=== PATIENT | male | born 1965 | race Hispanic/Latino ===

== ENCOUNTER 2019-11-24 10:59 | Observation (INO) | payer SELFPAY ==
[~2019-11-24] VITALS: Ht 165.1 cm; Wt 83.9 kg
[2019-11-24] MEDS ORDERED: SODIUM CHLORIDE 0.9% 1000ML 1,000 ML IV STA (11:37)
[2019-11-24 12:45] LABS: EOSINOPHILS # (AUTO) 0.1 (0.0-0.4); EOSINOPHILS % 2.2 % (0.0-6.0); HEMATOCRIT 42.2 % (38.2-49.6); HEMOGLOBIN 13.9 g/dL (14.0-18.0); LYMPHOCYTES # (AUTO) 0.8 (1.0-3.2); LYMPHOCYTES % 19.4 % (18.0-39.1); MEAN CORPUSCULAR HEMOGLOBIN 28.1 pg (28-32); MEAN CORPUSCULAR HGB CONC 32.9 g/dL (31-35); MEAN CORPUSCULAR VOLUME 85.4 fL (81-99); MONOCYTES # (AUTO) 0.3 (0.2-0.8); MONOCYTES % 6.9 % (4.4-11.3); NEUTROPHILS # (AUTO) 2.9 (2.1-6.9); NEUTROPHILS % 70.3 % (38.7-80.0); PLATELET COUNT 165 x10e3/uL (140-360); RED BLOOD COUNT 4.94 x10e6/uL (4.3-5.7); RED CELL DISTRIBUTION WIDTH 12.6 % (11.7-14.4)
[2019-11-24 12:55] LABS: AMPHETAMINES SCREEN,URINE NEGATIVE (NEGATIVE); BENZODIAZEPINES SCREEN,URINE NEGATIVE (NEGATIVE); PHENCYCLIDINE SCREEN,URINE NEGATIVE (NEGATIVE)
[2019-11-24 12:56] LABS: INR 1.97; PROTHROMBIN TIME 23.8 seconds (11.9-14.5)
[2019-11-24 12:58] LABS: PARTIAL THROMBOPLASTIN TIME 106.5 seconds (23.8-35.5)
[2019-11-24 13:03] LABS: ALANINE AMINOTRANSFERASE 64 IU/L (0-55); ALBUMIN/GLOBULIN RATIO 1.3 (0.8-2.0); ALKALINE PHOSPHATASE 110 IU/L (40-150); BLOOD UREA NITROGEN 14 mg/dL (7-26); BUN/CREATININE RATIO 17 (6-25); CALCIUM 9.2 mg/dL (8.4-10.2); CARBON DIOXIDE 26 mmol/L (22-29); CHLORIDE 106 mmol/L (98-107); CREATINE KINASE 196 IU/L (30-200); CREATININE, SERUM 0.83 mg/dL (0.72-1.25); EST GLOMERULAR FILTRATION RATE > 60 ML/MIN (60-); GLUCOSE 120 mg/dL (74-118); SODIUM 140 mmol/L (136-145)
[2019-11-24 13:17] LABS: CLARITY,URINE CLEAR (CLEAR); COLOR,URINE YELLOW (YELLOW); KETONES,URINE NEGATIVE (NEGATIVE); LEUKOCYTE ESTERASE ,URINE NEGATIVE (NEGATIVE); NITRITE,URINE NEGATIVE (NEGATIVE); PROTEIN,URINE DIPSTICK NEGATIVE (NEGATIVE)
[2019-11-24 13:18] LABS: BILIRUBIN,URINE NEGATIVE (NEGATIVE); URINE UROBILINOGEN 0.2 mg/dL (0.2 - 1)
[2019-11-24 13:20] LABS: BACTERIA,URINE FEW /HPF; EPITHELIAL CELLS,URINE FEW /LPF; RBC,URINE 0-5 /HPF (0-5); WBC,URINE (MAN) 0-5 /HPF (0-5)
--- NOTE | 2019-11-24 13:36 | Diagnostic Imaging Report ---
CT BRAIN WO HISTORY: Dizziness COMPARISON: None. TECHNIQUE: Noncontrast axial scans were obtained from skull base to the vertex. Coronal and sagittal reconstructions obtained from the axial data. One or more of the following dose reduction techniques were used: Automated exposure control, adjustment of the mA and/or kV according to patient size, and/or utilization of iterative reconstruction technique. Beam hardening artifacts obscure some details. DISCUSSION: Scalp/Skull: Unremarkable. Brain sulci: Appropriate for patient's age. Ventricles: Normal in size and configuration. No hydrocephalus. Extra-axial spaces: No masses or fluid collections. Mild carotid siphon calcifications are present. Parenchyma: No abnormal densities. No mass, hemorrhage, or large vascular territory acute infarct. Dural sinuses: No abnormal densities. Sellar/Suprasellar region: Intact. Skull base: Intact. Incidental findings: None. IMPRESSION: No acute intracranial abnormalities. Signed by: Dr. Matthieu Wyatt M.D. on 11/24/2019 1:33 PM
--- NOTE | 2019-11-24 13:50 | Emergency Department Note ---
History of Present Illnes History of Present Illness Chief Complaint: General Medicine Complaints History of Present Illness This is a 54 year old male PATIENT IN FROM HOME WITH COMPLAINTS OF DIZZINESS AND LIGHT HEADEDNESS AFTER HAVING A BOWEL MOVEMENT, STATES HE FELT HE WAS GOING TO PASS OUT; PATIENT APPEARS IN NO DISTRESS, RESP EVEN AND NONLABORED, DENIES PAIN. STATES SAME THING OCCURRED WHEN HE HAD CARDIAC STENT Historian: Patient Arrival Mode: Car Rand Maker Required: No Onset (how long ago): hour(s) (6) Radiation: Reports non-radiation Severity: moderate Onset quality: sudden Progression: resolved Chronicity: recurrent (OCCURRED WHEN HE HAD STENT, AND AGAIN WHEN HE HAD STENT OCCLUSION) Context: Denies recent illness Relieving factors: none Exacerbating factors: none Associated symptoms: Reports denies other symptoms Treatments prior to arrival: none Past Medical/Family History Physician Review I have reviewed the patient's past medical and family history. Any updates have been documented here. Past Medical History Recent Fever: No Clinical Suspicion of Infectio: No New/Unexplained Change in Ment: No Past Medical History: HI Past Surgical History: PCI Social History Smoking Cessation: Former smoker Counseling Performed: Yes Alcohol Use: None Any Illegal Drug Use: No TB Exposure/Symptoms: No Physically hurt or threatened: No Family History Family history of heart diseas: No Other Last Tetanus: UTD Any Pre-Existing Lines (PICC,: No Review of Systems Review of Systems Constitutional: Reports as per HPI EENTM: Reports no symptoms Cardiovascular: Reports other (NEAR-SYNCOPE) Respiratory: Reports no symptoms Gastrointestinal: Reports no symptoms Genitourinary: Reports no symptoms Musculoskeletal: Reports no symptoms Integumentary: Reports no symptoms Neurological: Reports as per HPI Psychological: Reports no symptoms Endocrine: Reports no symptoms Hematological/Lymphatic: Reports no symptoms Physical Exam Related Data Allergies: Coded Allergies: No Known Allergies (Unverified , 11/24/19) Triage Vital Signs Vital Signs Date Time Temp Pulse Resp B/P (MAP) Pulse Ox O2 Delivery O2 Flow Rate FiO2 11/24/19 11:19 98.1 70 20 124/84 98 Vital signs reviewed: Yes Physical Exam CONSTITUTIONAL Constitutional: Present well-developed, Present well-nourished HENT HENT: Present normocephalic, Present atraumatic, Present oropharynx clear/moist, Present nose normal HENT L/R: Present left ext ear normal, Present right ext ear normal EYES Eyes: Reports PERRL, Reports conjunctivae normal NECK Neck: Present ROM normal PULMONARY Pulmonary: Present effort normal, Present breath sounds normal CARDIOVASCULAR Cardiovascular: Present regular rhythm, Present heart sounds normal, Present capillary refill normal, Present normal rate GASTROINTESTINAL Abdominal: Present soft, Present nontender, Present bowel sounds normal GENITOURINARY Genitourinary: Present exam deferred SKIN Skin: Present warm, Present dry MUSCULOSKELETAL Musculoskeletal: Present ROM normal NEUROLOGICAL Neurological: Present alert, Present oriented x 3, Present no gross motor or sensory deficits PSYCHOLOGICAL Psychological: Present mood/affect normal, Present judgement normal Results Laboratory Result Diagram: 11/24/19 1204 11/24/19 1204 Laboratory Laboratory Tests Test 11/24/19 12:04 White Blood Count 4.18 x10e3/uL (4.8-10.8) Red Blood Count 4.94 x10e6/uL (4.3-5.7) Hemoglobin 13.9 g/dL (14.0-18.0) Hematocrit 42.2 % (38.2-49.6) Mean Corpuscular Volume 85.4 fL (81-99) Mean Corpuscular Hemoglobin 28.1 pg (28-32) Mean Corpuscular Hemoglobin Concent 32.9 g/dL (31-35) Red Cell Distribution Width 12.6 % (11.7-14.4) Platelet Count 165 x10e3/uL (140-360) Neutrophils (%) (Auto) 70.3 % (38.7-80.0) Lymphocytes (%) (Auto) 19.4 % (18.0-39.1) Monocytes (%) (Auto) 6.9 % (4.4-11.3) Eosinophils (%) (Auto) 2.2 % (0.0-6.0) Basophils (%) (Auto) 1.0 % (0.0-1.0) Neutrophils # (Auto) 2.9 (2.1-6.9) Lymphocytes # (Auto) 0.8 (1.0-3.2) Monocytes # (Auto) 0.3 (0.2-0.8) Eosinophils # (Auto) 0.1 (0.0-0.4) Basophils # (Auto) 0.0 (0.0-0.1) Absolute Immature Granulocyte (auto 0.01 x10e3/uL (0-0.1) Prothrombin Time 23.8 seconds (11.9-14.5) Prothromb Time International Ratio 1.97 Activated Partial Thromboplast Time 106.5 seconds (23.8-35.5) Urine Color Yellow (YELLOW) Urine Clarity Clear (CLEAR) Urine pH 5.5 (5 - 7) Urine Specific [place] >=1.030 (1.010-1.025) Urine Protein Negative (NEGATIVE) Urine Glucose (UA) Negative (NEGATIVE) Urine Ketones Negative (NEGATIVE) Urine Blood Negative (NEGATIVE) Urine Nitrite Negative (NEGATIVE) Urine Bilirubin Negative (NEGATIVE) Urine Urobilinogen 0.2 mg/dL (0.2 - 1) Urine Leukocyte Esterase Negative (NEGATIVE) Urine RBC 0-5 /HPF (0-5) Urine WBC 0-5 /HPF (0-5) Urine Epithelial Cells Few /LPF (NONE) Urine Bacteria Few /HPF (NONE) Sodium Level 140 mmol/L (136-145) Potassium Level 4.0 mmol/L (3.5-5.1) Chloride Level 106 mmol/L (98-107) Carbon Dioxide Level 26 mmol/L (22-29) Anion Gap 12.0 mmol/L (8-16) Blood Urea Nitrogen 14 mg/dL (7-26) Creatinine 0.83 mg/dL (0.72-1.25) Estimat Glomerular Filtration Rate > 60 ML/MIN (60-) BUN/Creatinine Ratio 17 (6-25) Glucose Level 120 mg/dL (74-118) Calcium Level 9.2 mg/dL (8.4-10.2) Total Bilirubin 0.5 mg/dL (0.2-1.2) Aspartate Amino Transf (AST/SGOT) 38 IU/L (5-34) Alanine Aminotransferase (ALT/SGPT) 64 IU/L (0-55) Alkaline Phosphatase 110 IU/L (40-150) Creatine Kinase 196 IU/L (30-200) Creatine Kinase MB 3.40 ng/mL (0-5.0) Troponin I 0.012 ng/mL (0-0.300) B-Type Natriuretic Peptide 13.8 pg/mL (0-100) Total Protein 7.1 g/dL (6.5-8.1) Albumin 4.0 g/dL (3.5-5.0) Globulin 3.1 g/dL (2.3-3.5) Albumin/Globulin Ratio 1.3 (0.8-2.0) Urine Opiates Screen Negative (NEGATIVE) Urine Methadone Screen Negative (NEGATIVE) Urine Barbiturates Screen Negative (NEGATIVE) Urine Phencyclidine Screen Negative (NEGATIVE) Urine Amphetamines Screen Negative (NEGATIVE) Urine Methamphetamines Screen Negative (NEGATIVE) Urine Benzodiazepines Screen Negative (NEGATIVE) Urine Cocaine Screen Negative (NEGATIVE) Urine Cannabinoids Screen Negative (NEGATIVE) Lab results reviewed: Yes Imaging Imaging results reviewed: Yes Impressions Procedure: [id number] CT/CT BRAIN WO Exam Date: 11/24/19 Exam Time: 1315 REPORT STATUS: Signed CT BRAIN WO HISTORY: Dizziness COMPARISON: None. TECHNIQUE: Noncontrast axial scans were obtained from skull base to the vertex. Coronal and sagittal reconstructions obtained from the axial data. One or more of the following dose reduction techniques were used: Automated exposure control, adjustment of the mA and/or kV according to patient size, and/or utilization of iterative reconstruction technique. Beam hardening artifacts obscure some details. DISCUSSION: Scalp/Skull: Unremarkable. Brain sulci: Appropriate for patient's age. Ventricles: Normal in size and configuration. No hydrocephalus. Extra-axial spaces: No masses or fluid collections. Mild carotid siphon calcifications are present. Parenchyma: No abnormal densities. No mass, hemorrhage, or large vascular territory acute infarct. Dural sinuses: No abnormal densities. Sellar/Suprasellar region: Intact. Skull base: Intact. Incidental findings: None. IMPRESSION: No acute intracranial abnormalities. Signed by: Dr. Matthieu Wyatt M.D. on 11/24/2019 1:33 PM Procedures 12 Lead ECG Interpretation ECG Interpretation : ECG: ECG 1 Rand Maker: Interpreted by ED physician Date: Nov 24, 2019 Time: 11:27 Rhythm: sinus rhythm QRS axis: left ST segments normal: Yes T wave inversion: II, III, aVF, V4, V5, V6 Other findings: LVH Q waves: III, aVF Clinical Impression: abnormal ECG Assessment & Plan Medical Decision Making MDM CHECK CBC, CHEM, CARDIACS, ECG, CXR, CT BRAIN, UDS - R/O ANEMIA, STEMI/NSTEMI, INFECTION, DEHYDRATION/RENAL INSUFF, CEREBRAL BLEED, DRUG USE Reassessment Reassessment ADMIT KRYS HURST Assessment & Plan Final Impression: (1) Near syncope Depart Disposition: ADMITTED Last Vital Signs Date Time Temp Pulse Resp B/P (MAP) Pulse Ox O2 Delivery O2 Flow Rate FiO2 11/24/19 11:19 98.1 70 20 124/84 98 Medications in the ED Sodium Chloride 1,000 ml @ 0 mls/hr Q0M STAT IV ; Start 11/24/19 at 11:37; Stop 11/24/19 at 11:41; Status DC JUAN ROBLES MD Nov 24, 2019 13:50
--- NOTE | 2019-11-24 13:53 | Diagnostic Imaging Report ---
EXAMINATION: CHEST SINGLE (PORTABLE) INDICATION: Dizziness COMPARISON: None FINDINGS: LINES/TUBES:None LUNGS:The lungs are well-inflated. No focal consolidation or pulmonary edema. PLEURA:No pleural effusion or pneumothorax. MEDIASTINUM:The cardiomediastinal silhouette appears normal in size and shape. BONES/SOFT TISSUES:No acute osseous injury. ABDOMEN:No free air under the diaphragm. IMPRESSION: No focal pneumonia or pulmonary edema. Signed by: Prabha Nunn MD on 11/24/2019 1:49 PM
[2019-11-24] MEDS ORDERED: ONDANSETRON HCL INJ 2MG/ML 2ML 2 MG/ML VIAL IV PRN (15:00)
--- NOTE | 2019-11-24 16:04 | NUR ---
Recvd patient from ER, AAOx3, Ambulatory, not in any distress, denies any pain or SOB, On Tele monitor, keep monitoring
[2019-11-24] MEDS ORDERED: WARFARIN SODIUM5 MG PO (16:16)
[2019-11-24] MEDS ORDERED: CLOPIDOGREL75 MG PO (16:16)
[2019-11-24] MEDS ORDERED: ASPIR 8181 MG PO (16:16)
[2019-11-24] MEDS ORDERED: LIPITOR20 MG PO (16:16)
[2019-11-24 16:18] VITALS: BP 135/91
[2019-11-24 16:33] VITALS: BP 135/91
[2019-11-24] MEDS: SODIUM CHLORIDE 0.9% 1000ML 1,000 ML IV SCH (17:07)
[2019-11-24] MEDS ORDERED: HYDRALAZINE HCL 20 MG/ML VIAL IV PRN (17:15)
[2019-11-24] MEDS ORDERED: ACETAMINOPHEN 325 MG TAB PO PRN (17:15)
--- NOTE | 2019-11-24 19:00 | NUR ---
RECEIVED PATIENT IN BEDSIDE SHIFT REPORT. PATIENT RESTING IN BED AT THIS TIME. NO PAIN REPORTED. NO DIZZINESS REPORTED. NO S&S OF DISTRESS NOTED. BED LOCKED IN LOWEST POSITION, SIDE RAILS UPX2, CALL LIGHT IN REACH.
[2019-11-24 19:45] LABS: CREATINE KINASE MB 2.7 ng/mL (0-5.0)
[2019-11-24 20:00] VITALS: BP 113/81
[2019-11-24] MEDS ORDERED: ATORVASTATIN 40 MG TAB PO SCH (21:00)
[2019-11-24 23:38] VITALS: BP 113/81
[2019-11-25] VITALS: BP 105/74
[2019-11-25] MEDS: SODIUM CHLORIDE 0.9% 1000ML 1,000 ML IV SCH
--- NOTE | 2019-11-25 00:42 | NUR ---
RECEIVED CALL FROM LAB THAT PATIENT'S COVID TEST CAME BACK NEGATIVE.
[2019-11-25 01:37] VITALS: BP_SYST 105; BP_SYST 119; BP_SYST 120; BP_DIAS 74; BP_DIAS 83; BP_DIAS 85
[2019-11-25 01:52] LABS: CREATINE KINASE MB 2.4 ng/mL (0-5.0)
[2019-11-25 05:57] LABS: BASOPHILS # (AUTO) 0.1 (0.0-0.1); EOSINOPHILS # (AUTO) 0.2 (0.0-0.4); EOSINOPHILS % 3.4 % (0.0-6.0); HEMATOCRIT 41.6 % (38.2-49.6); HEMOGLOBIN 13.6 g/dL (14.0-18.0); LYMPHOCYTES # (AUTO) 1.8 (1.0-3.2); LYMPHOCYTES % 35.2 % (18.0-39.1); MEAN CORPUSCULAR HEMOGLOBIN 28.5 pg (28-32); MEAN CORPUSCULAR HGB CONC 32.7 g/dL (31-35); MONOCYTES # (AUTO) 0.4 (0.2-0.8); MONOCYTES % 8.9 % (4.4-11.3); NEUTROPHILS # (AUTO) 2.6 (2.1-6.9); NEUTROPHILS % 51.3 % (38.7-80.0); PLATELET COUNT 147 x10e3/uL (140-360); RED BLOOD COUNT 4.78 x10e6/uL (4.3-5.7); RED CELL DISTRIBUTION WIDTH 12.3 % (11.7-14.4)
[2019-11-25 06:11] LABS: INR 2.05; PROTHROMBIN TIME 24.6 seconds (11.9-14.5)
[2019-11-25 06:22] LABS: PHOSPHORUS 3.9 MG/DL (2.3-4.7)
[2019-11-25 06:35] LABS: THYROID STIMULATING HORMONE 1.461 uIU/mL (0.350-4.940)
[2019-11-25 07:50] VITALS: BP 111/77
--- NOTE | 2019-11-25 08:33 | NUR ---
GAVE PACKET OF INFORMATION WITH [facility] [employer] FOR ASSISTANCE WITH LOW TO NO INCOME TO PATIENT. RESOURCES THAT PATIENT MAY BE ABLE TO FOLLOW UP UPON DISCHARGE. PT EDUCATED ON EACH RESOURCE AND UNDERSTANDING HOW TO FOLLOW UP TO SEE IF QUALIFIED FOR EACH RESOURCE.
[2019-11-25 08:51] VITALS: BP 111/77
[2019-11-25] MEDS ORDERED: ASPIRIN 81 MG ENTERIC COATED PO SCH (09:00)
[2019-11-25] MEDS: DOCUSATE SODIUM 100 MG CAP PO SCH ×2 (09:00→17:00)
[2019-11-25] MEDS ORDERED: CLOPIDOGREL BISULFATE 75 MG TAB PO SCH (09:00)
[2019-11-25] MEDS ORDERED: ASPIRIN 81 MG CHEW TAB PO SCH (09:00)
[2019-11-25] MEDS: FAMOTIDINE 20 MG TAB PO SCH ×2 (09:02→17:25)
[2019-11-25 09:42] LABS: ALANINE AMINOTRANSFERASE 58 IU/L (0-55); ALBUMIN 3.5 g/dL (3.5-5.0); ALBUMIN/GLOBULIN RATIO 1.2 (0.8-2.0); ALKALINE PHOSPHATASE 98 IU/L (40-150); ANION GAP 11.1 mmol/L (8-16); BLOOD UREA NITROGEN 9 mg/dL (7-26); BUN/CREATININE RATIO 12 (6-25); CALCIUM 8.7 mg/dL (8.4-10.2); CARBON DIOXIDE 22 mmol/L (22-29); CHLORIDE 109 mmol/L (98-107); CHOL/HDL RATIO 4.3 (3.9-4.7); CHOLESTEROL 120 MD/DL (0-199); CREATININE, SERUM 0.76 mg/dL (0.72-1.25); EST GLOMERULAR FILTRATION RATE > 60 ML/MIN (60-); GLUCOSE 91 mg/dL (74-118); HDL CHOLESTEROL 28 MG/DL (40-60); LDL CHOLESTEROL 66 MG/DL (60-130); POTASSIUM 4.1 mmol/L (3.5-5.1); SODIUM 138 mmol/L (136-145); TRIGLYCERIDES 132 MG/DL (0-149)
[2019-11-25 09:49] LABS: CREATINE KINASE MB 2.2 ng/mL (0-5.0)
[2019-11-25 11:08] VITALS: BP 119/80
[2019-11-25 15:19] VITALS: BP 127/84
--- NOTE | 2019-11-25 19:00 | NUR ---
RECEIVED PATIENT IN BEDSIDE SHIFT REPORT. PATIENT TO BE DISCHARGED HOME, AWAITING ORDERS. NO NEEDS EXPRESSED AT THIS TIME.
--- NOTE | 2019-11-25 21:06 | NUR ---
PATIENT DISCHARGED AT THIS TIME. IV DISCONTINUED AT 2044, CATHETER TIP INTACT, PRESSURE DRESSING APPLIED, COBAN USED AND 3 MINUTES OF PRESSURE D/T PATIENT'S WAFARIN USE. NO NEW PRESCRIPTIONS AT THIS TIME, CONTINUE HOME MEDS. FOLLOW UP WITH PCP AND DISPATCHER SERVICE IN 2 WEEKS. CARDIAC DIET. ACTIVITY TOLERATED. PATIENT VERBALIZED UNDERSTANDING. NO QUESTIONS AT THIS TIME. PATIENT AMBULATED TO FRONT OF BUILDING, DISCHARGE PAPERWORK IN HAND, ESCORTED BY STAFF. HOME IN PRIVATE AUTO WITH DRIVING.
--- NOTE | 2019-11-26 01:37 | Discharge Summary ---
PRIMARY CARE PHYSICIAN: Dr. Humphrey at [facility], outpatient flow worker at [facility]. The patient cannot recall this physician's name, but he does see him every 6 months. CONSULTING PHYSICIANS: On this case, during this hospitalization, Dr. Tinajero of Cardiology. CHIEF COMPLAINT: Near syncope, dizziness, lightheadedness. HISTORY OF PRESENT ILLNESS: The patient is a 54-year-old male, who admitted from home with progressive dizziness/lightheadedness, most notable when having a bowel movement. He denied any chest pain, but did have palpitations at times. He did yard work on 11/22 and felt fine, but had dizziness the morning of admission on 11/23. Dizziness had started about 3 months ago. Around that time, he had a stent occlusion removed. PAST MEDICAL HISTORY: Cardiac stent occlusion in 2009. He had a myocardial infarction. He states that his systolic blood pressure runs around 120s at home. PAST SURGICAL HISTORY: PCI with cardiac stent placement in 2009. He had a stent occlusion removed in August 2019. FAMILY HISTORY: Father and brother had myocardial infarctions. Mother diabetic. Two aunts of breast cancer. SOCIAL HISTORY: The patient smoked 1-2 cigarettes per day when he was younger, but has since quit. He did drink when he was younger. Stopped drinking alcohol since then. He used to drink 24-pack on weekends. He admits to using marijuana in the past about 30 years ago. ALLERGIES: NO KNOWN ALLERGIES. ADMITTING DIAGNOSES: 1. Presyncope. 2. Coronary artery disease, positive history of myocardial infarction, positive coronary artery stent, positive history of stent occlusion removal in August 2019, history of myocardial infarction in close relative i.e. father and brother. 3. Daily headaches. 4. Nausea. 5. Mild transaminitis. DISCHARGE DIAGNOSES: 1. Presyncope. 2. Coronary artery disease, positive history of myocardial infarction, positive coronary artery stent, positive history of stent occlusion removal in August 2019, history of myocardial infarction in close relative i.e. father and brother. 3. Daily headaches. 4. Nausea. 5. Mild transaminitis. On admission, temperature 98.1, heart rate 70 with respirations 20, blood pressure 124/84, pulse oximetry 98%. WBC 4.18, hemoglobin 13.9, hematocrit 42.2, platelets 165. Chemistry within normal limits except glucose 120. AST 38, ALT 64, alkaline phosphatase 110, total bilirubin 0.5. Cardiac biomarkers were obtained x4 sets and they were normal. B-type natriuretic peptide 13.8. Urinalysis was negative. UDS negative. Coronavirus PCR collected on 11/23 at 14:[address] of the brain showed no acute intracranial abnormalities on 11/23. Chest x-ray was negative. There was no focal pneumonia or pulmonary edema. The patient's bilateral carotid Doppler ultrasound showed no evidence of significant carotid stenosis. Today on the day of discharge, temperature 97.9, heart rate 57, blood pressure 119/80, respirations 18, and oxygen saturation 99%. Today's labs generally within normal limits with hemoglobin 13.6. The CT of the brain was negative. He was not dehydrated. Orthostatic vital signs were normal. Per Cardiology, the patient can be discharged home. His daily headaches are usually very mild with pain level 2/10 on a 0-10 pain scale. The patient was instructed to continue aspirin, Plavix, and Coumadin. Follow up with Dr. Humphrey, his PCP in 1-2 weeks. Follow up with Cardiology as directed, either Dr. Tinajero or his outpatient flow worker at [facility]. Continue cardiac diet. Activity level as tolerated. Dictated by Dutch Campos NP MD DADA EsquivelP/MODL /[id number]
== END 2019-11-25 21:23 | disposition home or self-care (01) ==
LOC: ER 12:53 → ERHOLD 14:53 → MED/SURG2 16:05
PROVIDERS: ADMIT Internal Medicine; ATTEND Internal Medicine
DX: R55 Syncope and collapse (principal); I25.10 Atherosclerotic heart disease of native coronary artery without angina pectoris; I25.2 Old myocardial infarction; Z95.5 Presence of coronary angioplasty implant and graft; R51 Headache; R11.0 Nausea; R74.0 Nonspecific elevation of levels of transaminase and lactic acid dehydrogenase [LDH]; Z11.59 Encounter for screening for other viral diseases
CPT/HCPCS: 36415 ×2; 70450; 71045; 80053 ×2; 80061; 80307; 81001; 82550 ×2; 82553 ×2; 83036; 83735; 83880; 84100; 84443; 84484 ×2; 85025 ×2; 85610 ×2; 85730; 87635; 93005; 93880; 99284; G0378 ×2; J7030